=== PATIENT | male | born 1965 ===

== ENCOUNTER 2018-03-24 11:17 | Emergency (ER) | payer OTHER ==
[2018-03-24 11:27] VITALS: BP 156/95; PULSE 100; RESP 18; TEMP 101.3; O2SAT 100
--- NOTE | 2018-03-24 12:36 | C.PDOC ---
History Of Present Illness 52 y/o male comes in complaining of flu like symptoms since 3-4 days ago consisting of dry cough, congestion, sore throat, back and knee pain, and subjective fever. Patient states he has been taking ibuprofen and tylenol at home with mild relief but is still having symptoms. Patient denies any SOB, chest pain, or other symptoms. Time Seen by Provider: 03/24/18 11:31 Chief Complaint (Nursing): Flu-like Symptoms History Per: Patient History/Exam Limitations: no limitations Onset/Duration Of Symptoms: Days Current Symptoms Are (Timing): Still Present Past Medical History Reviewed: Historical Data, Nursing Documentation, Vital Signs Vital Signs: Last Vital Signs Temp 101.3 F H 03/24/18 11:24 Pulse 100 H 03/24/18 11:24 Resp 18 03/24/18 11:24 BP 156/95 H 03/24/18 11:24 Pulse Ox 100 03/24/18 11:24 - Medical History PMH: HTN Family History: States: No Known Family Hx - Social History Hx Alcohol Use: Yes Hx Substance Use: No - Immunization History Hx Tetanus Toxoid Vaccination: No Hx Influenza Vaccination: No Hx Pneumococcal Vaccination: No Review Of Systems Constitutional: Positive for: Fever (subjective). Negative for: Chills ENT: Positive for: Nose Congestion, Other (sore throat) Cardiovascular: Negative for: Chest Pain Respiratory: Positive for: Cough (dry). Negative for: Shortness of Breath Gastrointestinal: Negative for: Vomiting, Diarrhea Musculoskeletal: Positive for: Back Pain, Other (Knee pain) Neurological: Negative for: Dizziness Physical Exam - Physical Exam Appears: Non-toxic, No Acute Distress Skin: Warm, Dry Head: Atraumatic, Normacephalic Eye(s): bilateral: Normal Inspection Oral Mucosa: Moist Throat: Normal, No Erythema, No Exudate, Other (uvula midline) Neck: Supple Chest: Symmetrical Cardiovascular: Rhythm Regular, No Murmur Respiratory: Normal Breath Sounds, No Rales, No Rhonchi, No Wheezing Gastrointestinal/Abdominal: Soft, No Tenderness Extremity: Bilateral: Atraumatic, Normal Color And Temperature, Normal ROM Neurological/Psych: Oriented x3, Normal Speech ED Course And Treatment O2 Sat by Pulse Oximetry: 100 (RA) Pulse Ox Interpretation: Normal Medical Decision Making Medical Decision Making: Plan: --Flu swab --Tylenol PO Flu swab positive. Symptoms for 3-4 days, tamiflu not likely to be effective. AAOx3 in no distress, stable for discharge home. Tylenol PO given for fever and body pain. Disposition - Disposition Disposition: HOME/ ROUTINE Disposition Time: 12:16 Condition: STABLE Additional Instructions: CINTIA GIRARD, thank you for letting us take care of you today. Your provider was Roxana Miles MD and you were treated for FLU LIKE SYMPTOMS. The emergency medical care you received today was directed at your acute symptoms. If you were prescribed any medication, please fill it and take as directed. It may take several days for your symptoms to resolve. Return to the Emergency Department if your symptoms worsen, do not improve, or if you have any other problems. Please contact your doctor or call one of the physicians/clinics you have been referred to that are listed on the Patient Visit Information form that is included in your discharge packet. Bring any paperwork you were given at discharge with you along with any medications you are taking to your follow up visit. Our treatment cannot replace ongoing medical care by a primary care provider outside of the emergency department. Thank you for allowing the [facility] team to be part of your care today. If you had an X-Ray or CT scan: A Radiologist will review the ED reading if any change in treatment is needed we will contact you. If you had a blood, urine, or wound culture: It will take several days for the results, if any change in treatment is needed we will contact you. If you had an STI test: It will take 48 hours for the results. Please call after 1 week if you have not heard back. Instructions: Flu, Adult (DC) Forms: Gen Discharge Inst Emirati, [employer] (Emirati) Print Language: ALGERIAN - Clinical Impression Clinical Impression: Influenza - Scribe Statement The provider has reviewed the documentation as recorded by the Ian Krishnamurthy Provider Attestation: All medical record entries made by the Ian were at my direction and personal ly dictated by me. I have reviewed the chart and agree that the record accurately reflects my personal performance of the history, physical exam, medical decision making, and the department course for this patient. I have also personally directed, reviewed, and agree with the discharge instructions and disposition.
== END 2018-03-24 12:20 | disposition home or self-care (01) ==
LOC: C.ER 11:17
DX: J11.1 Influenza due to unidentified influenza virus with other respiratory manifestations (principal)